=== PATIENT | female | born 1990 | race Caucasian/White ===

== ENCOUNTER 2017-01-08 11:37 | Emergency (ER) | payer OTHER ==
[~2017-01-08 11:37] MED LIST: ACET50TA PO; HYDR1SOL PO; IBUP80TA PO; VITAPRTA PO
[2017-01-08] MEDS ORDERED: NORCO, ANEXSIA 5/325MG TABLET (HYDROcodone/ACETAMINOPHEN) ONE (11:56)
--- NOTE | 2017-01-08 13:05 | EDDOCDS ---
Nurse's Notes [facility] Name: Carmen Choi Age: 26 yrs Sex: Female : 1990 Arrival Date: 01/08/2017 Time: 11:37 Bed PR Private MD: NO PRIMARY PHYSICIAN, . Diagnosis: Localized swelling, mass and lump, left upper limb-left middle finger PIP joint Presentation: 01/08 11:41 Presenting complaint: Patient states: woke up with L 3 rd finger swelling, pain and rs3 redness yesterday. reports of tingling/numbness in 3 rd finger. Adult Sepsis Screening: The patient does not have new or worsening altered mentation. Patient's respiratory rate is less than 22. Systolic blood pressure is greater than 100. Patient has a qSOFA score of 0- Negative Sepsis Screen. Suicide/Homicide risk assessment- the patient denies having any suicidal and/or homicidal ideations and does not present with any other emotional, behavioral or mental health complaints. Status: Patient is not a consumer services consultant or dependent. Transition of care: patient was not received from another setting of care. 11:41 Acuity: OLGA Level 4 rs3 11:41 Method Of Arrival: Walkin/Carried/Asstd rs3 Triage Assessment: 11:44 General: Appears in no apparent distress. Pain: Location: dorsal aspect of middle rs3 phalanx of left middle finger, dorsal aspect of proximal phalanx of left middle finger, palmar aspect of middle phalanx of left middle finger and palmar aspect of proximal phalanx of left middle finger. HIV screening NA for this visit Offered previously. 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 none - PMHx: none; - PSHx: Appendectomy; - Social history: Smoking status: Patient uses tobacco products, heavy tobacco smoker. No barriers to communication noted, The patient speaks fluent Cambodian. - Family history: Not pertinent. - : The pt / caregiver states he / she is not on anticoagulants. Home medication list is obtained from the patient. - Exposure Risk Screening:: None identified. Screenin:01 Screening information is obtained from the patient. Fall risk: No risks identified. pml Assistance ADL's: requires no assistance with activities of daily living. Abuse/DV Screen: The patient / caregiver reports he/she is: not in a situation that causes fear, pain or injury. Nutritional screening: No deficits noted. Advance Directives: Currently, there is no health care proxy. home support is adequate. Assessment: 11:56 General: Appears in no apparent distress, comfortable, Behavior is appropriate for age, pml cooperative. Pain: Location: palmar aspect of proximal phalanx of left middle finger Pain currently is 7 out of 10 on a pain scale. Neurological: Level of Consciousness is awake, alert, Oriented to person, place, time. Cardiovascular: Capillary refill < 3 seconds. Respiratory: Airway is patent Respiratory effort is even, unlabored. Derm: Skin is intact, Skin is red, Swollen area noted on palmar aspect of proximal phalanx of left middle finger and palmar aspect of middle phalanx of left middle finger and dorsal aspect of proximal phalanx of left middle finger and dorsal aspect of middle phalanx of left middle finger. 13:01 General: Appears in no apparent distress, Behavior is appropriate for age, cooperative. pml Neurological: Level of Consciousness is awake, alert, Oriented to person, place, time. Cardiovascular: Capillary refill < 3 seconds. Respiratory: Airway is patent Respiratory effort is even, unlabored. Derm: Skin is red, on palmar aspect of proximal phalanx of left middle finger and palmar aspect of middle phalanx of left middle finger Swollen area noted on palmar aspect of middle phalanx of left middle finger and dorsal aspect of proximal phalanx of left middle finger and dorsal aspect of middle phalanx of left middle finger. Vital Signs: 11:40 BP 103 / 67; Pulse 79; Resp 18; Temp 99.3(O); Pulse Ox 100% on R/A; Weight 64.41 kg bnb (M); Height 5 ft. 5 in. (165.10 cm) (R); Pain 7/10; 12:36 BP 129 / 78; Pulse 68; Resp 18; Temp 98.8(TE); Pulse Ox 99% on R/A; Pain 5/10; ar3 13:02 Pain 5/10; pml 11:40 Body Mass Index 23.63 (64.41 kg, 165.10 cm) bnb Vitals: 11:40 Log In Time: January 08, 2017 at 11:37. bnb ED Course: 11:39 Patient visited by Bridget Esposito PCA. bnb 11:39 Patient moved to Waiting bnb 11:40 NO PRIMARY PHYSICIAN, . is Private Physician. bnb 11:41 Alan Polk PA-C is PHCP. cc10 11:41 Angy Mcdonald MD is Attending Physician. cc10 11:41 Patient visited by Bridget Esposito PCA. bnb 11:41 Patient moved to Pre RCE bnb 11:43 Triage Initiated rs3 11:45 Patient moved to Triage 2 rs3 11:47 Patient visited by Alan Polk PA-C. cc10 11:47 Patient visited by Alan Polk PA-C. cc10 11:57 Patient visited by Veronika Merritt RN. pml 11:57 Patient moved to TR1 pml 12:13 [facility] Payment Agreement was scanned into [employer] and attached to record. mm15 12:33 Patient moved to PR1 / 25 ar3 12:36 Patient visited by Eloina Snyder PCA. ar3 12:55 [facility] is Referral Physician. cc10 13:01 The patient / caregiver is instructed regarding the plan of care and ED course. Patient pml has correct armband on for positive identification. Bed in low position. Call light in reach. 13:01 No IV's were initiated during this patient's visit. No procedures done that require pml assistance. Administered Medications: 11:56 Drug: HYDROcodone-acetaminophen 1 tabs [hydrocodone 5 mg-acetaminophen 325 mg tablet (1 pml tabs)] Route: PO; 13:02 Follow up: Pain 5/10 Adult; Response: Confirmed pt not driving.; Pain is decreased pml Order Results: There are currently no results for this order. Outcome: 12:55 Discharge ordered by Provider. cc10 13:01 Discharge Assessment: Patient awake, alert and oriented x 3. No cognitive and/or pml functional deficits noted. Patient verbalized understanding of disposition instructions. patient administered narcotics - no. The following High Risk Discharge criteria are identified: None. Discharged to home ambulatory. Condition: good Condition: stable. Discharge instructions given to patient, Instructed on discharge instructions, follow up and referral plans. medication usage, Demonstrated understanding of instructions, medications, Pt was receptive of discharge instructions/ teaching. No special radiology studies were completed. Property sent home with patient. 13:03 Patient left the ED. pml Signatures: Macie Erazo RN RN rs3 Eloina Snyder, METHODS SPECIALIST METHODS SPECIALIST ar3 Veronika Merritt RN RN pml Richar Alexander mm15 Alan Polk, PA-C PA-C cc10 Bridget Esposito, METHODS SPECIALIST METHODS SPECIALIST bnb MTDD
--- NOTE | 2017-01-08 13:05 | EDDOCDS ---
Physician Documentation [facility] Name: Carmen Choi Age: 26 yrs Sex: Female : 1990 Arrival Date: 01/08/2017 Time: 11:37 Bed PR Private MD: NO PRIMARY PHYSICIAN, . Disposition: 01/08/17 12:55 Discharged to Home/Self Care. Impression: Localized swelling, mass and lump, left upper limb - left middle finger PIP joint. - Condition is Stable. - Discharge Instructions: Pseudogout. - Prescriptions for Naprosyn 500 mg Oral Tablet - take 1 tablet by ORAL route 2 times per day take with food; 30 tablet. - Medication Reconciliation, [facility] Followup form. - Follow up: [facility]; When: Call to arrange an appointment; Reason: Wound/Symptom Recheck, Recheck today's complaints, Worsening of conditions, Continuance of care. - Problem is an ongoing problem. - Symptoms have improved. Historical: - Allergies: Darvocet-N 100 (Hives); Percocet (Hives); - Home Meds: 1. none - PMHx: none; - PSHx: Appendectomy; - Social history: Smoking status: Patient uses tobacco products, heavy tobacco smoker. No barriers to communication noted, The patient speaks fluent Swazi. - Family history: Not pertinent. - : The pt / caregiver states he / she is not on anticoagulants. Home medication list is obtained from the patient. - Exposure Risk Screening:: None identified. 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 5 in. (165.10 cm) (R); Pain 7/10; 12:36 BP 129 / 78; Pulse 68; Resp 18; Temp 98.8(TE); Pulse Ox 99% on R/A; Pain 5/10; ar3 13:02 Pain 5/10; pml 11:40 Body Mass Index 23.63 (64.41 kg, 165.10 cm) bnb MDM: 11:54 HYDROcodone-acetaminophen 5 mg-325 mg 1 tabs PO once ordered. cc10 11:55 Fingers: 3rd. Ordered. EDMS 12:13 Financial registration complete. mm15 12:13 [facility] Payment Agreement was scanned into [employer] and attached to record. mm15 12:54 Splint Affected Extremity ordered. cc10 Administered Medications: 11:56 Drug: HYDROcodone-acetaminophen 1 tabs [hydrocodone 5 mg-acetaminophen 325 mg tablet (1 pml tabs)] Route: PO; 13:02 Follow up: Pain 04/05 Adult; Response: Confirmed pt not driving.; Pain is decreased pml Signatures: Dispatcher [employer] EDMS Macie Erazo RN RN rs3 Veronika Merritt RN RN pml Richar Alexander mm15 Alan Polk PA-C PA-C cc10 The chart was reviewed and I authenticate all verbal orders and agree with the evaluation and treatment provided.Attachments: 12:13 [facility] Payment Agreement mm15 MTDD
--- NOTE | 2017-01-08 15:00 | REP ---
LEFT THIRD FINGER SERIES: 01/08/2017. Clinical history: Pain third digit, unable to fully extend finger. Four views show soft tissue swelling about the PIP joint of the third finger. Lesser swelling elsewhere in that digit. In the volar aspect of the third digit at the PIP joint shows a soft tissue calcification. This could be an avulsion or calcified loose body in the joint. It is not as dense as I would expect for an acute avulsion, it may be old. There were no other findings. Signed by Donny Husain MD 01/08/2017 07:29 P
--- NOTE | 2017-01-10 14:05 | EDDOCDS ---
Nurse's Notes [facility] Name: Carmen Choi Age: 26 yrs Sex: Female : 1990 Arrival Date: 01/08/2017 Time: 11:37 Bed PR Private MD: NO PRIMARY PHYSICIAN, . Diagnosis: Localized swelling, mass and lump, left upper limb-left middle finger PIP joint Presentation: 01/08 11:41 Presenting complaint: Patient states: woke up with L 3 rd finger swelling, pain and rs3 redness yesterday. reports of tingling/numbness in 3 rd finger. Adult Sepsis Screening: The patient does not have new or worsening altered mentation. Patient's respiratory rate is less than 22. Systolic blood pressure is greater than 100. Patient has a qSOFA score of 0- Negative Sepsis Screen. Suicide/Homicide risk assessment- the patient denies having any suicidal and/or homicidal ideations and does not present with any other emotional, behavioral or mental health complaints. Status: Patient is not a media services specialist or dependent. Transition of care: patient was not received from another setting of care. 11:41 Acuity: OLGA Level 4 rs3 11:41 Method Of Arrival: Walkin/Carried/Asstd rs3 Triage Assessment: 11:44 General: Appears in no apparent distress. Pain: Location: dorsal aspect of middle rs3 phalanx of left middle finger, dorsal aspect of proximal phalanx of left middle finger, palmar aspect of middle phalanx of left middle finger and palmar aspect of proximal phalanx of left middle finger. HIV screening NA for this visit Offered previously. 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 none - PMHx: none; - PSHx: Appendectomy; - Social history: Smoking status: Patient uses tobacco products, heavy tobacco smoker. No barriers to communication noted, The patient speaks fluent Bahraini. - Family history: Not pertinent. - : The pt / caregiver states he / she is not on anticoagulants. Home medication list is obtained from the patient. - Exposure Risk Screening:: None identified. Screenin:01 Screening information is obtained from the patient. Fall risk: No risks identified. pml Assistance ADL's: requires no assistance with activities of daily living. Abuse/DV Screen: The patient / caregiver reports he/she is: not in a situation that causes fear, pain or injury. Nutritional screening: No deficits noted. Advance Directives: Currently, there is no health care proxy. home support is adequate. Assessment: 11:56 General: Appears in no apparent distress, comfortable, Behavior is appropriate for age, pml cooperative. Pain: Location: palmar aspect of proximal phalanx of left middle finger Pain currently is 7 out of 10 on a pain scale. Neurological: Level of Consciousness is awake, alert, Oriented to person, place, time. Cardiovascular: Capillary refill < 3 seconds. Respiratory: Airway is patent Respiratory effort is even, unlabored. Derm: Skin is intact, Skin is red, Swollen area noted on palmar aspect of proximal phalanx of left middle finger and palmar aspect of middle phalanx of left middle finger and dorsal aspect of proximal phalanx of left middle finger and dorsal aspect of middle phalanx of left middle finger. 13:01 General: Appears in no apparent distress, Behavior is appropriate for age, cooperative. pml Neurological: Level of Consciousness is awake, alert, Oriented to person, place, time. Cardiovascular: Capillary refill < 3 seconds. Respiratory: Airway is patent Respiratory effort is even, unlabored. Derm: Skin is red, on palmar aspect of proximal phalanx of left middle finger and palmar aspect of middle phalanx of left middle finger Swollen area noted on palmar aspect of middle phalanx of left middle finger and dorsal aspect of proximal phalanx of left middle finger and dorsal aspect of middle phalanx of left middle finger. Vital Signs: 11:40 BP 103 / 67; Pulse 79; Resp 18; Temp 99.3(O); Pulse Ox 100% on R/A; Weight 64.41 kg bnb (M); Height 5 ft. 5 in. (165.10 cm) (R); Pain 7/10; 12:36 BP 129 / 78; Pulse 68; Resp 18; Temp 98.8(TE); Pulse Ox 99% on R/A; Pain 5/10; ar3 13:02 Pain 5/10; pml 11:40 Body Mass Index 23.63 (64.41 kg, 165.10 cm) bnb Vitals: 11:40 Log In Time: January 08, 2017 at 11:37. bnb ED Course: 11:39 Patient visited by Bridget Esposito PCA. bnb 11:39 Patient moved to Waiting bnb 11:40 NO PRIMARY PHYSICIAN, . is Private Physician. bnb 11:41 Alan Polk PA-C is PHCP. cc10 11:41 Angy Mcdonald MD is Attending Physician. cc10 11:41 Patient visited by rBidget Esposito PCA. bnb 11:41 Patient moved to Pre RCE bnb 11:43 Triage Initiated rs3 11:45 Patient moved to Triage 2 rs3 11:47 Patient visited by Alan Polk PA-C. cc10 11:47 Patient visited by Alan Polk PA-C. cc10 11:57 Patient visited by Veronika Merritt RN. pml 11:57 Patient moved to TR1 pml 12:13 [facility] Payment Agreement was scanned into [employer] and attached to record. mm15 12:33 Patient moved to PR1 / 25 ar3 12:36 Patient visited by Eloina Snyder PCA. ar3 12:55 [facility] is Referral Physician. cc10 13:01 The patient / caregiver is instructed regarding the plan of care and ED course. Patient pml has correct armband on for positive identification. Bed in low position. Call light in reach. 13:01 No IV's were initiated during this patient's visit. No procedures done that require pml assistance. 15:08 Fingers: 3rd. Returned. EDMS 01/09 13:26 T-Sheet-- Draft Copy was scanned into [employer] and attached to record. gb Administered Medications: 01/08 11:56 Drug: HYDROcodone-acetaminophen 1 tabs [hydrocodone 5 mg-acetaminophen 325 mg tablet (1 pml tabs)] Route: PO; 13:02 Follow up: Pain 5/10 Adult; Response: Confirmed pt not driving.; Pain is decreased pml Order Results: Radiology Order: Fingers: 3rd. Test: Fingers: 3rd. REASON FOR EXAMINATION: Deformity/Swelling; LEFT THIRD FINGER SERIES: 01/08/2017.; ; Clinical history: Pain third digit, unable to fully extend finger.; ; Four views show soft tissue swelling about the PIP joint of the third finger.; Lesser swelling elsewhere in that digit. In the volar aspect of the third digit; at the PIP joint shows a soft tissue calcification. This could be an avulsion or; calcified loose body in the joint. It is not as dense as I would expect for an; acute avulsion, it may be old. There were no other findings.; ; ; ; ; Signed by; Donny Husain MD 01/08/2017 07:29 P; Outcome: 12:55 Discharge ordered by Provider. cc10 13:01 Discharge Assessment: Patient awake, alert and oriented x 3. No cognitive and/or pml functional deficits noted. Patient verbalized understanding of disposition instructions. patient administered narcotics - no. The following High Risk Discharge criteria are identified: None. Discharged to home ambulatory. Condition: good Condition: stable. Discharge instructions given to patient, Instructed on discharge instructions, follow up and referral plans. medication usage, Demonstrated understanding of instructions, medications, Pt was receptive of discharge instructions/ teaching. No special radiology studies were completed. Property sent home with patient. 13:03 Patient left the ED. pml Signatures: Dispatcher [employer] EDMS Precious Cabezas, Reg Reg gb Macie ErazoRN RN rs3 Eloina Snyder, STONE CRUSHER OPERATOR STONE CRUSHER OPERATOR ar3 Veronika Merritt RN RN pml Richar Alexander mm15 Alan Polk, PA-C PA-C cc10 Bridget Esposito, STONE CRUSHER OPERATOR STONE CRUSHER OPERATOR bnb Chart Complete MTDD
--- NOTE | 2017-01-10 14:05 | EDDOCDS ---
Physician Documentation [facility] Name: Carmen Choi Age: 26 yrs Sex: Female : 1990 Arrival Date: 01/08/2017 Time: 11:37 Bed PR Private MD: NO PRIMARY PHYSICIAN, . Disposition: 01/08/17 12:55 Discharged to Home/Self Care. Impression: Localized swelling, mass and lump, left upper limb - left middle finger PIP joint. - Condition is Stable. - Discharge Instructions: Pseudogout. - Prescriptions for Naprosyn 500 mg Oral Tablet - take 1 tablet by ORAL route 2 times per day take with food; 30 tablet. - Medication Reconciliation, [facility] Followup form. - Follow up: [facility]; When: Call to arrange an appointment; Reason: Wound/Symptom Recheck, Recheck today's complaints, Worsening of conditions, Continuance of care. - Problem is an ongoing problem. - Symptoms have improved. Historical: - Allergies: Darvocet-N 100 (Hives); Percocet (Hives); - Home Meds: 1. none - PMHx: none; - PSHx: Appendectomy; - Social history: Smoking status: Patient uses tobacco products, heavy tobacco smoker. No barriers to communication noted, The patient speaks fluent Colombian. - Family history: Not pertinent. - : The pt / caregiver states he / she is not on anticoagulants. Home medication list is obtained from the patient. - Exposure Risk Screening:: None identified. 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 5 in. (165.10 cm) (R); Pain 7/10; 12:36 BP 129 / 78; Pulse 68; Resp 18; Temp 98.8(TE); Pulse Ox 99% on R/A; Pain 5/10; ar3 13:02 Pain 5/10; pml 11:40 Body Mass Index 23.63 (64.41 kg, 165.10 cm) bnb MDM: 11:54 HYDROcodone-acetaminophen 5 mg-325 mg 1 tabs PO once ordered. cc10 11:55 Fingers: 3rd. Ordered. EDMS 12:13 Financial registration complete. mm15 12:13 [facility] Payment Agreement was scanned into [employer] and attached to record. mm15 12:54 Splint Affected Extremity ordered. cc10 01/09 13:26 T-Sheet-- Draft Copy was scanned into [employer] and attached to record. gb Administered Medications: 01/08 11:56 Drug: HYDROcodone-acetaminophen 1 tabs [hydrocodone 5 mg-acetaminophen 325 mg tablet (1 pml tabs)] Route: PO; 13:02 Follow up: Pain 04/05 Adult; Response: Confirmed pt not driving.; Pain is decreased pml Signatures: Dispatcher [employer] EDMS Precious Cabezas, Reg Reg gb Macie Erazo RN RN rs3 Veronika Merritt RN RN pml Richar Alexander mm15 Alan Polk PA-C PARyan cc10 The chart was reviewed and I authenticate all verbal orders and agree with the evaluation and treatment provided.Attachments: 12:13 [facility] Payment Agreement mm15 01/09 13:26 T-Sheet-- Draft Copy gb Chart Complete MTDD
--- NOTE | 2017-01-10 14:06 | EDDOCDS ---
Physician Documentation [facility] Name: Carmen Choi Age: 26 yrs Sex: Female : 1990 Arrival Date: 01/08/2017 Time: 11:37 Bed PR Private MD: NO PRIMARY PHYSICIAN, . Disposition: 01/08/17 12:55 Discharged to Home/Self Care. Impression: Localized swelling, mass and lump, left upper limb - left middle finger PIP joint. - Condition is Stable. - Discharge Instructions: Pseudogout. - Prescriptions for Naprosyn 500 mg Oral Tablet - take 1 tablet by ORAL route 2 times per day take with food; 30 tablet. - Medication Reconciliation, [facility] Followup form. - Follow up: [facility]; When: Call to arrange an appointment; Reason: Wound/Symptom Recheck, Recheck today's complaints, Worsening of conditions, Continuance of care. - Problem is an ongoing problem. - Symptoms have improved. Historical: - Allergies: Darvocet-N 100 (Hives); Percocet (Hives); - Home Meds: 1. none - PMHx: none; - PSHx: Appendectomy; - Social history: Smoking status: Patient uses tobacco products, heavy tobacco smoker. No barriers to communication noted, The patient speaks fluent Greek. - Family history: Not pertinent. - : The pt / caregiver states he / she is not on anticoagulants. Home medication list is obtained from the patient. - Exposure Risk Screening:: None identified. 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 5 in. (165.10 cm) (R); Pain 7/10; 12:36 BP 129 / 78; Pulse 68; Resp 18; Temp 98.8(TE); Pulse Ox 99% on R/A; Pain 5/10; ar3 13:02 Pain 5/10; pml 11:40 Body Mass Index 23.63 (64.41 kg, 165.10 cm) bnb MDM: 11:54 HYDROcodone-acetaminophen 5 mg-325 mg 1 tabs PO once ordered. cc10 11:55 Fingers: 3rd. Ordered. EDMS 12:13 Financial registration complete. mm15 12:13 [facility] Payment Agreement was scanned into [employer] and attached to record. mm15 12:54 Splint Affected Extremity ordered. cc10 01/09 13:26 T-Sheet-- Draft Copy was scanned into [employer] and attached to record. gb Administered Medications: 01/08 11:56 Drug: HYDROcodone-acetaminophen 1 tabs [hydrocodone 5 mg-acetaminophen 325 mg tablet (1 pml tabs)] Route: PO; 13:02 Follow up: Pain 04/05 Adult; Response: Confirmed pt not driving.; Pain is decreased pml Signatures: Dispatcher [employer] EDMS Precious Cabezas, Reg Reg gb Macie Erazo RN RN rs3 Veronika Merritt RN RN pml Richar Alexander mm15 Alan oPlk PA-C PARyan cc10 The chart was reviewed and I authenticate all verbal orders and agree with the evaluation and treatment provided.Attachments: 12:13 [facility] Payment Agreement mm15 01/09 13:26 T-Sheet-- Draft Copy gb Chart Complete MTDD
== END 2017-01-08 13:03 | disposition home or self-care (01) ==
LOC: M ED 11:37
DX: M79.645 Pain in left finger(s) (principal); Z72.0 Tobacco use; Z88.5 Allergy status to narcotic agent

== ENCOUNTER 2017-07-04 01:44 | Emergency (ER) | payer OTHER, SELFPAY ==
[2017-07-04 01:52] VITALS: BP 104/65
== END 2017-07-04 06:24 | disposition left against medical advice (07) ==
LOC: M ED 01:44
DX: K04.7 Periapical abscess without sinus (principal); Z53.21 Procedure and treatment not carried out due to patient leaving prior to being seen by health care provider

== ENCOUNTER 2017-08-15 14:49 | Emergency (ER) | payer OTHER ==
[~2017-08-15] VITALS: Ht 165.1 cm; Wt 58.2 kg
[2017-08-15] MEDS ORDERED: SUDA30TA PO (17:38)
[2017-08-15] MEDS ORDERED: FLON1SPR (17:38)
[2017-08-15] MEDS ORDERED: ZYRT10TA2 PO (17:38)
[2017-08-15 18:01] VITALS: BP 109/62
== END 2017-08-15 18:17 | disposition home or self-care (01) ==
LOC: M ED 14:49
DX: J30.9 Allergic rhinitis, unspecified (principal); H66.93 Otitis media, unspecified, bilateral; F17.200 Nicotine dependence, unspecified, uncomplicated; Z79.899 Other long term (current) drug therapy; Z88.5 Allergy status to narcotic agent

== ENCOUNTER 2017-08-18 13:20 | Emergency (ER) | payer OTHER ==
[~2017-08-18] VITALS: Ht 165.1 cm; Wt 58.2 kg
[~2017-08-18 13:20] MED LIST changes: +FLON1SPR; +SUDA30TA PO; +ZYRT10TA2 PO
[2017-08-18 13:21] VITALS: BP 139/91
--- NOTE | 2017-08-18 16:03 | REP ---
Left rib series and PA chest: Left ribs four views: There is no rib fracture or other rib abnormality. PA chest: There is no pneumothorax, hemothorax or pulmonary contusion. There is mild thoracic scoliosis convex right at the thoracolumbar junction, possibly positional. There is body piercing jewelry in the right breast. Signed by Ajit Molina MD 08/18/2017 03:54 P
[2017-08-18] MEDS ORDERED: CYCL10TA PO (16:46)
== END 2017-08-18 17:07 | disposition home or self-care (01) ==
LOC: M ED 13:20
DX: S20.229A Contusion of unspecified back wall of thorax, initial encounter (principal); R07.81 Pleurodynia; W22.8XXA Striking against or struck by other objects, initial encounter; Y92.099 Unspecified place in other non-institutional residence as the place of occurrence of the external cause; Y93.89 Activity, other specified; Y99.9 Unspecified external cause status; J30.9 Allergic rhinitis, unspecified; F17.200 Nicotine dependence, unspecified, uncomplicated; M41.80 Other forms of scoliosis, site unspecified; Z79.899 Other long term (current) drug therapy; Z88.5 Allergy status to narcotic agent

== ENCOUNTER → 2017-08-25 | Outpatient (CLI) | payer OTHER ==
[~2017-08-25] MED LIST changes: +CYCL10TA PO
--- NOTE | 2017-08-25 14:16 | REP ---
PELVIC ULTRASOUND: Real-time sonographic evaluation of the pelvis performed utilizing transabdominal and endovaginal technique. The bladder measures 5.4 x .1 x 8.6 cm. The uterus measures 7.6 x 3.8 x 3.9 cm. Endometrial thickness is 10 mm. Right ovary measures 3.4 x 2.6 x 2.5 cm and contains a complex follicle 1.5 x 1.1 x 1.3 cm. The ovary measures 3.2 x 2.4 x 4.0 cm and contains a complex follicle 1.9 x 1.6 x 2.0 cm. There is no evidence of ovarian torsion with blood flow seen in each ovary with duplex Doppler evaluation, RI right ovary 0.33 and left ovary 0.34. There is trace free fluid in the cul-de-sac. IMPRESSION: Complex follicle in each ovary. Trace free fluid. No torsion. Signed by Ajit Remy MD 08/25/2017 05:19 P
== END ==
LOC: M RAD 13:02
PROVIDERS: ATTEND Physician Assistant Medical
DX: R10.9 Unspecified abdominal pain (principal)

== ENCOUNTER → 2017-11-13 | Outpatient (REF) | payer OTHER ==
[2017-11-13 18:40] LABS: MEAN CORPUSCULAR HGB CONC 32.7 g/dl (32.0-36.5); MEAN CORPUSCULAR VOLUME 91.7 fl (80.0-96.0); PLATELET COUNT, AUTOMATED 160 10^3/uL (150-450); RED CELL DISTRIBUTION WIDTH 13.2 % (11.5-14.5); WHITE BLOOD COUNT 11.4 10^3/uL (4.0-10.0)
[2017-11-13 19:13] LABS: HCG, SERUM QUANTITATIVE 5530 MIU/ML
[2017-11-15 12:07] LABS: HBsAg Prenatal NEGATIVE (NEGATIVE)
== END ==
LOC: M LAB REF 16:42
PROVIDERS: ATTEND Advanced Practice Midwife
DX: O36.80X0 Pregnancy with inconclusive fetal viability, not applicable or unspecified (principal)

== ENCOUNTER 2017-11-21 16:07 | Emergency (ER) | payer OTHER ==
[2017-11-21] MEDS: NS 1,000 ML IV (19:15)
[2017-11-21 20:31] LABS: BASO % 0.2 % (0.0-1.0); EOS # 0.1 10^3/uL (0.0-0.50); EOS % 0.6 % (0.0-3.0); IMMATURE GRANULOCYTE % 0.2 % (0-0); LYMPH # 2.8 10^3/uL (1.5-6.5); LYMPH % 33.1 % (24.0-44.0); MEAN CORPUSCULAR HGB CONC 33.7 g/dl (32.0-36.5); MEAN CORPUSCULAR VOLUME 89.1 fl (80.0-96.0); MONO # 0.5 10^3/uL (0.0-0.8); MONO % 6.1 % (0.0-5.0); NEUTROPHILS % 59.8 % (36.0-66.0); PLATELET COUNT, AUTOMATED 155 10^3/uL (150-450); RED CELL DISTRIBUTION WIDTH 12.9 % (11.5-14.5); WHITE BLOOD COUNT 8.3 10^3/uL (4.0-10.0)
[2017-11-21 21:10] LABS: HCG, SERUM QUANTITATIVE 24104 MIU/ML
== END 2017-11-21 21:59 | disposition home or self-care (01) ==
LOC: M ED 16:07
DX: O20.8 Other hemorrhage in early pregnancy (principal); O23.41 Unspecified infection of urinary tract in pregnancy, first trimester; Z3A.08 8 weeks gestation of pregnancy; O99.331 Smoking (tobacco) complicating pregnancy, first trimester; Z79.899 Other long term (current) drug therapy; Z88.5 Allergy status to narcotic agent
CPT/HCPCS: 76801

== ENCOUNTER → 2018-02-22 | Outpatient (REF) | payer MEDICAID | LOC: M LAB REF 13:35 | DX: Z34.82 Encounter for supervision of other normal pregnancy, second trimester (principal) ==

== ENCOUNTER → 2018-05-01 | Outpatient (CLI) | payer OTHER ==
[2018-05-01 13:42] LABS: HEMATOCRIT 35.2 % (36.0-47.0); HEMOGLOBIN 11.8 g/dl (12.0-15.5); MEAN CORPUSCULAR HEMOGLOBIN 30.7 pg (27.0-33.0); MEAN CORPUSCULAR HGB CONC 33.5 g/dl (32.0-36.5); MEAN CORPUSCULAR VOLUME 91.7 fl (80.0-96.0); PLATELET COUNT, AUTOMATED 121 10^3/uL (150-450); RED BLOOD COUNT 3.84 10^6/uL (4.00-5.40); RED CELL DISTRIBUTION WIDTH 14.3 % (11.5-14.5); WHITE BLOOD COUNT 13.3 10^3/uL (4.0-10.0)
[2018-05-01 14:08] LABS: GLUCOSE CHALLENGE TEST 1 HOUR 104 MG/DL (LESS THAN 140)
== END ==
LOC: M LAB 12:01
DX: Z34.82 Encounter for supervision of other normal pregnancy, second trimester (principal); Z36.89 Encounter for other specified antenatal screening
CPT/HCPCS: 82950

== ENCOUNTER 2018-05-11 19:30 | Outpatient (CLI) | payer OTHER ==
[2018-05-11 22:43] LABS: CHLAMYDIA DNA AMPLIFICATION NEGATIVE (NEGATIVE); GC DNA AMPLIFICATION NEGATIVE (NEGATIVE)
== END 2018-05-11 21:13 | disposition home or self-care (01) ==
LOC: M LDO 19:30
DX: O26.853 Spotting complicating pregnancy, third trimester (principal); Z3A.31 31 weeks gestation of pregnancy
CPT/HCPCS: 76815

== ENCOUNTER → 2018-06-19 | Outpatient (REF) | payer OTHER | LOC: M LAB REF 13:04 | DX: Z34.83 Encounter for supervision of other normal pregnancy, third trimester (principal); Z3A.00 Weeks of gestation of pregnancy not specified | CPT/HCPCS: 87081 ==

== ENCOUNTER 2018-07-04 06:28 | Inpatient (IN) | payer OTHER ==
[2018-07-04] MEDS ORDERED: OXYTOCIN 30 UNITS IN 0.9% NaCl 500ML IV BAG (J2590) As Ordered (07:11)
[2018-07-04] MEDS: LACTATED RINGER'S 1000 ML IV (07:30)
[2018-07-04] MEDS: OXYTOCIN DRIP 30 UNITS in APPROPRIATE DILUENT 1 EA IV (07:30)
[2018-07-04] MEDS ORDERED: RHOGAM 300 MCG (1500 IU) INJ (J2790) IM (07:45)
[2018-07-04] MEDS ORDERED: DOCUSATE SODIUM 100 MG CAP PO (07:45)
[2018-07-04] MEDS ORDERED: MEASLES,MUMPS,RUBELLA VACCINE INJ (MMR-II) (90707) SC (07:45)
[2018-07-04] MEDS ORDERED: DIBUCAINE 1% OINTMENT 30GM TOP (07:45)
[2018-07-04] MEDS ORDERED: METHYLERGONOVINE MALEATE 0.2 MG TAB PO (07:45)
[2018-07-04 08:05] LABS: HEMATOCRIT 38.2 % (36.0-47.0); HEMOGLOBIN 12.6 g/dl (12.0-15.5); MEAN CORPUSCULAR HEMOGLOBIN 29.7 pg (27.0-33.0); MEAN CORPUSCULAR VOLUME 90.1 fl (80.0-96.0); PLATELET COUNT, AUTOMATED 165 10^3/uL (150-450); RED BLOOD COUNT 4.24 10^6/uL (4.00-5.40); RED CELL DISTRIBUTION WIDTH 13.5 % (11.5-14.5); WHITE BLOOD COUNT 27.4 10^3/uL (4.0-10.0)
[2018-07-04] MEDS: IBUPROFEN 800 MG TAB PO ×2 (09:27→21:16)
[2018-07-04] MEDS: PRENATAL VITAMINS CHEWABLE TABLET PO (09:56)
[2018-07-04] MEDS: ACETAMINOPHEN 500 MG TAB PO (12:47)
[2018-07-05] MEDS: ACETAMINOPHEN 500 MG TAB PO (08:55)
[2018-07-05] MEDS: PRENATAL VITAMINS CHEWABLE TABLET PO (08:55)
== END 2018-07-05 09:45 | disposition home or self-care (01) | DRG 541 ==
LOC: M LDO 06:28 → M LDI 07:04 → M OBS 09:47
PROVIDERS: Obstetrics & Gynecology
PROC: 10E0XZZ Delivery of Products of Conception, External Approach (ICD-10-PCS; principal; 2018-07-04)
PROC: 10D17Z9 Manual Extraction of Products of Conception, Retained, Via Natural or Artificial Opening (ICD-10-PCS; 2018-07-04)
DX: O73.0 Retained placenta without hemorrhage (principal); O69.82X0 Labor and delivery complicated by other cord entanglement, without compression, not applicable or unspecified; Z37.0 Single live birth; Z3A.39 39 weeks gestation of pregnancy

== ENCOUNTER 2018-11-19 16:24 | Emergency (ER) | payer OTHER ==
[~2018-11-19] VITALS: Ht 165.1 cm; Wt 56.8 kg
[2018-11-19 16:24] VITALS: BP 110/63
[~2018-11-19 16:24] MED LIST changes: -ACET50TA PO; +IBUP-1114 PO; +KEFL500C17 PO; +MAPA500T17 PO; +PRENTAB31 PO; +ZYRT10CA5 PO; -ZYRT10TA2 PO
[2018-11-19] MEDS ORDERED: NORCOTAB PO (16:47)
[2018-11-19] MEDS ORDERED: PERI0.126 PO (16:47)
[2018-11-19] MEDS ORDERED: AMOX500C PO (16:47)
== END 2018-11-19 16:58 | disposition home or self-care (01) ==
LOC: M ED 16:24
DX: K02.9 Dental caries, unspecified (principal)

== ENCOUNTER → 2018-12-13 | Outpatient (REF) | payer OTHER ==
[~2018-12-13] MED LIST changes: +AMOX500C PO; -MAPA500T17 PO; +MAPA500T2 PO; +NORCOTAB PO; +PERI0.126 PO
[2018-12-13 19:14] LABS: HCG, SERUM QUANTITATIVE 9 MIU/ML
[2018-12-13 19:18] LABS: HEMATOCRIT 45.9 % (36.0-47.0); HEMOGLOBIN 14.9 g/dl (12.0-15.5); MEAN CORPUSCULAR HEMOGLOBIN 28.3 pg (27.0-33.0); MEAN CORPUSCULAR HGB CONC 32.5 g/dl (32.0-36.5); MEAN CORPUSCULAR VOLUME 87.3 fl (80.0-96.0); PLATELET COUNT, AUTOMATED 157 10^3/uL (150-450); RED BLOOD COUNT 5.26 10^6/uL (4.00-5.40); WHITE BLOOD COUNT 7.1 10^3/uL (4.0-10.0)
[2018-12-14 10:16] LABS: RUBELLA IgG QUALITATIVE IMMUNE (IMMUNE)
[2018-12-14 10:44] LABS: HEPATITIS C VIRUS ABY INDEX 0.1 INDEX (<0.8)
[2018-12-14 11:50] LABS: HIV 1&2 SCREEN CENTAUR NEGATIVE (NEGATIVE)
== END ==
LOC: M LAB REF 16:50
PROVIDERS: ATTEND Obstetrics & Gynecology
DX: Z32.01 Encounter for pregnancy test, result positive (principal); O36.80X0 Pregnancy with inconclusive fetal viability, not applicable or unspecified

== ENCOUNTER → 2018-12-19 | Outpatient (REF) | payer OTHER | LOC: M LAB REF 17:12 | PROVIDERS: ATTEND Obstetrics & Gynecology | DX: O36.80X0 Pregnancy with inconclusive fetal viability, not applicable or unspecified (principal) ==

== ENCOUNTER 2019-04-13 14:57 | Emergency (ER) | payer OTHER ==
[~2019-04-13] VITALS: Ht 165.1 cm; Wt 61.4 kg
[~2019-04-13 14:57] MED LIST changes: +HYDR-3715 PO; -NORCOTAB PO
[2019-04-13 14:58] VITALS: BP 122/86
[2019-04-13] MEDS ORDERED: ERYTHROMYCIN OPHTH OINT OD ONE (15:30)
== END 2019-04-13 15:53 | disposition home or self-care (01) ==
LOC: M ED 14:57
DX: S05.01XA Injury of conjunctiva and corneal abrasion without foreign body, right eye, initial encounter (principal); W50.0XXA Accidental hit or strike by another person, initial encounter; Y92.098 Other place in other non-institutional residence as the place of occurrence of the external cause; F17.200 Nicotine dependence, unspecified, uncomplicated; Z88.8 Allergy status to other drugs, medicaments and biological substances

== ENCOUNTER 2020-01-08 15:09 | Emergency (ER) | payer MEDICAID, OTHER ==
[~2020-01-08] VITALS: Ht 165.1 cm; Wt 70.6 kg
[2020-01-08 15:10] VITALS: BP 117/70
[2020-01-08 16:59] LABS: HEMATOCRIT 43.4 % (36.0-47.0); HEMOGLOBIN 14.1 g/dl (12.0-15.5); MEAN CORPUSCULAR HEMOGLOBIN 30.4 pg (27.0-33.0); MEAN CORPUSCULAR HGB CONC 32.5 g/dl (32.0-36.5); MEAN CORPUSCULAR VOLUME 93.5 fl (80.0-96.0); PLATELET COUNT, AUTOMATED 149 10^3/uL (150-450); RED BLOOD COUNT 4.64 10^6/uL (4.00-5.40); WHITE BLOOD COUNT 8.9 10^3/uL (4.0-10.0)
[2020-01-08 17:16] LABS: BLOOD UREA NITROGEN 7 MG/DL (7-18); CALCIUM LEVEL 8.2 MG/DL (8.5-10.1); CARBON DIOXIDE LEVEL 27 MEQ/L (21-32); CHLORIDE LEVEL 108 MEQ/L (98-107); CREATININE FOR GFR 0.83 MG/DL (0.55-1.30); GLOMERULAR FILTRATION RATE > 60.0 (>60); GLUCOSE, FASTING 65 MG/DL (70-100); POTASSIUM SERUM 3.6 MEQ/L (3.5-5.1); SODIUM LEVEL 142 MEQ/L (136-145)
[2020-01-08 17:19] LABS: APPEARANCE, URINE CLEAR (CLEAR); BACTERIA, URINE AUTO NEGATIVE (NEGATIVE); BILIRUBIN, URINE AUTO NEGATIVE (NEGATIVE); BLOOD, URINE BLOOD NEGATIVE (NEGATIVE); COLOR, URINE YELLOW (YELLOW); GLUCOSE, URINE (UA) AUTO NEGATIVE (NEGATIVE); HCG, SERUM QUALITATIVE POSITIVE (NEGATIVE); KETONE, URINE AUTO TRACE mg/dL (NEGATIVE); LEUKOCYTE ESTERASE, URINE AUTO 2+ (NEGATIVE); MUCUS, URINE SMALL (NEGATIVE); NITRITE, URINE AUTO NEGATIVE (NEGATIVE); PROTEIN, URINE AUTO NEGATIVE (NEGATIVE); RBC, URINE AUTO 4 /HPF (0-3); SPECIFIC GRAVITY URINE AUTO 1.025 (1.002-1.035); SQUAMOUS EPITHELIAL CELL UR AU 2 /HPF (0-6); WBC, URINE AUTO 3 /HPF (0-3)
== END 2020-01-08 16:53 | disposition left against medical advice (07) ==
LOC: M ED 15:09
DX: Z53.21 Procedure and treatment not carried out due to patient leaving prior to being seen by health care provider (principal)

== ENCOUNTER → 2020-01-17 | Outpatient (REF) | payer MEDICAID ==
[2020-01-17 14:54] LABS: HEMATOCRIT 46.6 % (36.0-47.0); HEMOGLOBIN 15.2 g/dl (12.0-15.5); MEAN CORPUSCULAR HEMOGLOBIN 30.6 pg (27.0-33.0); MEAN CORPUSCULAR HGB CONC 32.6 g/dl (32.0-36.5); PLATELET COUNT, AUTOMATED 156 10^3/uL (150-450); RED BLOOD COUNT 4.96 10^6/uL (4.00-5.40); WHITE BLOOD COUNT 8.8 10^3/uL (4.0-10.0)
[2020-01-17 15:13] LABS: HCG, SERUM QUANTITATIVE 20493 MIU/ML
[2020-01-17 15:17] LABS: RUBELLA IgG QUALITATIVE IMMUNE (IMMUNE)
[2020-01-17 15:46] LABS: HIV 1&2 SCREEN CENTAUR NEGATIVE (NEGATIVE)
[2020-01-20 10:43] LABS: HEPATITIS C VIRUS ABY INDEX < 0.0 INDEX (<0.8)
== END ==
LOC: M LAB REF 13:08
PROVIDERS: ATTEND Obstetrics & Gynecology
DX: Z32.01 Encounter for pregnancy test, result positive (principal)

== ENCOUNTER → 2020-01-20 | Outpatient (CLI) | payer MEDICAID ==
--- NOTE | 2020-01-20 17:47 | REP ---
First trimester obstetric sonography: History: Supervision of . viability. Findings: Transabdominal scanning is performed. A single living intrauterine gestation is confirmed. Embryonic pole measures 5 mm in crown-rump length. This corresponds to a 4-pvmm-2-day gestational age estimate. heart rate is recorded at 123 beats per minute. No subchorionic hemorrhage is seen. No extrauterine abnormality is observed. Impression: Viable single intrauterine gestation at 6 weeks 2 days by crown-rump length. FARZANA by sonography September 12, 2020. No complication is identified. Electronically Signed by Simone Alanis MD 01/20/2020 06:21 P
== END ==
LOC: M RAD 15:32
PROVIDERS: ATTEND Obstetrics & Gynecology
DX: O36.80X0 Pregnancy with inconclusive fetal viability, not applicable or unspecified (principal); Z3A.01 Less than 8 weeks gestation of pregnancy

== ENCOUNTER → 2020-04-22 | Outpatient (CLI) | payer OTHER ==
[~2020-04-22] MED LIST changes: +CYCL-707 PO; -CYCL10TA PO
--- NOTE | 2020-04-23 03:24 | REP ---
Clinical: Anatomical evaluation. Comparison: 01/20/2020 . Findings: Examination demonstrates a single live intrauterine in transverse (head to maternal left) presentation. motion is identified by technologist. Placenta is noted posterior and grade there zero without evidence for placenta previa or abruption. Amniotic fluid volume is normal. Cervix measures 3.8 cm in length and appears closed. No evidence for nuchal cord. Gestational age by LMP 20 weeks 3 days with FARZANA 09/06/2020 . Gestational age by current measurements 20 weeks 0 days with FARZANA 09/09/2020 . FHR equals 160 beats per minute. BPD 4.6 cm 20 weeks 0 days HC 17.3 cm 19 weeks 6 days AC 14.6 cm 19 weeks 6 days FL 3.2 cm 19 weeks 6 days HL 3.1 cm 20 weeks 1 day HC/AC ratio 1.18 Estimated weight 318 grams ( 29th percentile). Anatomical assessment demonstrates normal structures including cranium, choroid plexus, cavum, cerebellum/posterior fossa, facial features, lungs, diaphragm, stomach, cord insertion/three-vessel cord, kidneys/bladder, spine, and extremities. Impression: Single live intrauterine in transverse lie demonstrating appropriate estimated weight and growth. Limited evaluation of the heart/ventricular outflow tracts noted. Remainder of the anatomical assessment is complete and normal. Electronically Signed by Romario Maya MD 04/23/2020 03:16 A
== END ==
LOC: M RAD 14:28
PROVIDERS: ATTEND Obstetrics & Gynecology
DX: Z34.82 Encounter for supervision of other normal pregnancy, second trimester (principal); Z3A.20 20 weeks gestation of pregnancy

== ENCOUNTER → 2020-05-20 | Outpatient (CLI) | payer OTHER ==
--- NOTE | 2020-05-20 16:11 | REP ---
OBSTETRIC SONOGRAPHY: HISTORY: Supervision of followup anatomy. heart. FINDINGS: Scanning through the gravid uterus demonstrates a single living intrauterine gestation in a variable lie. motion is observed and heart rate is recorded at 157 beats per minute. A posterior fundal grade 0 placenta is seen without evidence of previa or abruption. Amniotic fluid is subjectively normal. Closed cervical length is measured transabdominally at 4.6 cm. No extrauterine abnormality is observed. There has been appropriate interval growth. Four-chamber heart visualization is still less than optimal as is right ventricular cardiac outflow tract view. Left ventricular outflow tract view is achieved and is felt to be unremarkable. The following additional anatomic structures are identified and felt to be unremarkable: cranium, choroid plexus, cavum, cerebellum and posterior fossa, lungs, left jugular outflow tract view, diaphragm, left-sided stomach, abdominal wall cord insertion, three-vessel cord, kidneys and bladder, spine, upper and lower extremities. BIOMETRY CHART: BPD 6.0 cm = 24 weeks 4 days HC 21.5 cm = 23 weeks 4 days AC 18.8 cm = 23 weeks 4 days FL 4.4 cm = 24 weeks 4 days HL 4.0 cm = 24 weeks 3 days CD 2.5 cm = 22 weeks 6 days HC/AC ratio normal 1.14 Cephalic index normal 0.79. Estimated weight 653 grams, 1 pound 7 ounces, 34th percentile for 24 weeks 3 days. IMPRESSION: A single intrauterine gestation at 23 weeks 6 days by today's composite criteria. Expected gestational age estimate based on prior sonography is 24 weeks 3 days. FARZANA by prior sonography September 06, 2020. Appropriate interval growth. cardiac structures are still less than optimally visualized due to position. Electronically Signed by Simone Alanis MD 05/20/2020 04:46 P
== END ==
LOC: M LRY 12:12
PROVIDERS: ATTEND Advanced Practice Midwife
DX: Z36.2 Encounter for other antenatal screening follow-up (principal); Z3A.23 23 weeks gestation of pregnancy

== ENCOUNTER → 2020-06-02 | Outpatient (CLI) | payer OTHER ==
[~2020-06-02] MED LIST changes: +PRENTAB9 PO; +TUMS500C PO
--- NOTE | 2020-06-02 15:07 | REP ---
Bilateral lower extremity Duplex Doppler venous ultrasound: Real time compression and duplex Doppler interrogation of the bilateral lower extremity deep venous system is performed. Bilaterally, the common femoral, superficial femoral and popliteal veins are fully compressible with transducer pressure and demonstrate normal spontaneous and phasic flow, without evidence of deep venous thrombosis. Impression: No evidence of deep venous thrombosis of the bilateral lower extremity femoral popliteal venous system. Electronically Signed by Ajit Remy MD 06/02/2020 02:59 P
== END ==
LOC: M RAD 13:40
PROVIDERS: ATTEND Advanced Practice Midwife
DX: O26.892 Other specified pregnancy related conditions, second trimester (principal); Z3A.26 26 weeks gestation of pregnancy; M79.669 Pain in unspecified lower leg

== ENCOUNTER → 2020-06-30 | Outpatient (CLI) | payer OTHER ==
[2020-07-27 20:28] LABS: HEMOGLOBIN 11.8 g/dl (12.0-15.5); MEAN CORPUSCULAR HEMOGLOBIN 29.7 pg (27.0-33.0); MEAN CORPUSCULAR HGB CONC 31.9 g/dl (32.0-36.5); MEAN CORPUSCULAR VOLUME 93.2 fl (80.0-96.0); PLATELET COUNT, AUTOMATED 148 10^3/uL (150-450); RED BLOOD COUNT 3.97 10^6/uL (4.00-5.40)
== END ==
LOC: M LAB 09:55
PROVIDERS: ATTEND Advanced Practice Midwife
DX: Z34.03 Encounter for supervision of normal first pregnancy, third trimester (principal); Z3A.00 Weeks of gestation of pregnancy not specified

== ENCOUNTER → 2020-08-18 | Outpatient (REF) | payer OTHER | LOC: M LAB REF 16:41 | PROVIDERS: ATTEND Advanced Practice Midwife | DX: N76.0 Acute vaginitis (principal) ==

== ENCOUNTER 2020-09-02 19:55 | Inpatient (IN) | payer OTHER ==
[~2020-09-02] VITALS: Ht 165.1 cm; Wt 80.7 kg
[~2020-09-02 19:55] MED LIST changes: -PRENTAB9 PO; -TUMS500C PO
[2020-09-02 20:11] VITALS: BP 113/65
[2020-09-02] MEDS ORDERED: TUMS500C PO (20:31)
[2020-09-02] MEDS ORDERED: PRENTAB9 PO (20:31)
[2020-09-02] MEDS ORDERED: LR 600 ML IV SCH (20:45)
[2020-09-02 21:16] VITALS: BP 106/69
[2020-09-02 21:23] LABS: HEMATOCRIT 33.2 % (36.0-47.0); HEMOGLOBIN 10.5 g/dl (12.0-15.5); MEAN CORPUSCULAR HEMOGLOBIN 27.7 pg (27.0-33.0); MEAN CORPUSCULAR HGB CONC 31.6 g/dl (32.0-36.5); MEAN CORPUSCULAR VOLUME 87.6 fl (80.0-96.0); PLATELET COUNT, AUTOMATED 133 10^3/uL (150-450); RED BLOOD COUNT 3.79 10^6/uL (4.00-5.40); WHITE BLOOD COUNT 15.5 10^3/uL (4.0-10.0)
[2020-09-02 21:35] LABS: CREATININE,RANDOM URINE 98.5 MG/DL; TOTAL PROTEIN,RANDOM URINE 19.2 MG/DL (0.0-12.0)
[2020-09-02 21:36] LABS: ALT/SGPT 15 U/L (12-78); BILIRUBIN,TOTAL 0.3 MG/DL (0.2-1.0); CREATININE FOR GFR 0.49 MG/DL (0.55-1.30); GLOMERULAR FILTRATION RATE > 60.0 (>60); LDH LACTATE DEHYDROGENASE 200 U/L (84-246); URIC ACID 5.4 MG/DL (2.6-6.0)
[2020-09-02] MEDS: LR 1,000 ML IV SCH (21:44)
[2020-09-02 22:28] VITALS: BP 117/71
[2020-09-02 23:04] VITALS: BP 91/52
[2020-09-03] VITALS (53 sets, daily range): BP systolic 82–128; BP diastolic 46–86
[2020-09-03] MEDS ORDERED: LR 1,000 ML IV SCH (00:23)
[2020-09-03] MEDS ORDERED: FENTANYL 2MCG/ML ROPIVACAINE 0.2% IN 0.9% NACL 100ML IVBAG As Ordered ONE (00:38)
[2020-09-03] MEDS ORDERED: REFRIGERATOR IV KEYS XX PRN (02:15)
[2020-09-03] MEDS ORDERED: FENTANYL/ROPIVACAINE/NACL BAG 100 ML EPIDURAL SCH (02:15)
[2020-09-03] MEDS ORDERED: diphenhydrAMINE 50MG/ML VIAL (J1200) IV PRN (02:15)
[2020-09-03] MEDS ORDERED: LACTATED RINGER'S 1000 ML IV PRN (02:15)
[2020-09-03] MEDS ORDERED: EPIDURAL COMMENT XX SCH (02:15)
[2020-09-03] MEDS ORDERED: ONDANSETRON 4MG/2ML VIAL IV PRN (02:15)
[2020-09-03] MEDS ORDERED: EPIDURAL/PCA KEYS XX PRN (02:15)
[2020-09-03] MEDS ORDERED: NALOXONE INJ 0.4MG/1ML VIAL (J2310 PER 1MG) IV PRN (02:15)
[2020-09-03] MEDS: ePHEDrine SULFATE 25 MG/5 ML(5MG/ML) SYRINGE IV PRN ×3 (04:50→10:28)
[2020-09-03] MEDS ORDERED: OXYTOCIN 30 UNITS IN 0.9% NaCl 500ML IV BAG (J2590) As Ordered ONE (07:07)
[2020-09-03] MEDS: LR 1,000 ML IV SCH (08:26)
[2020-09-03] MEDS ORDERED: OXYTOCIN DRIP 30 UNITS in IV 1 EA IV SCH ×2 (09:15→12:12)
[2020-09-03] MEDS ORDERED: ACETAMINOPHEN 500 MG TAB PO PRN (12:15)
[2020-09-03] MEDS ORDERED: DOCUSATE SODIUM 100 MG CAP PO PRN (12:15)
[2020-09-03] MEDS ORDERED: RHOGAM 300 MCG (1500 IU) INJ (J2790) IM SCH (12:15)
[2020-09-03] MEDS ORDERED: IBUPROFEN 600MG TAB PO PRN (12:15)
[2020-09-03] MEDS ORDERED: METHYLERGONOVINE MALEATE 0.2 MG TAB PO PRN (12:15)
[2020-09-03] MEDS ORDERED: IBUPROFEN 800 MG TAB PO PRN (12:15)
[2020-09-03] MEDS ORDERED: ACETAMINOPHEN TAB 650MG DOSE (2X325MG) PO PRN (12:15)
[2020-09-03] MEDS ORDERED: DIBUCAINE 1% OINTMENT 30GM TOP PRN (12:15)
[2020-09-03] MEDS ORDERED: MEASLES,MUMPS,RUBELLA VACCINE INJ (MMR-II) (90707) SC SCH (12:15)
[2020-09-03 12:25] LABS: CORD GAS ABE V -2.2; CORD GAS HCO3 V 23.2 MEQ/L; CORD GAS O2 SAT V 76.3 %; CORD GAS PCO2 V 42.2 mmHg; CORD GAS PH V 7.358 UNITS; CORD GAS PO2 V 32.3 mmHg; CORD GAS SBC V 22.2 MEQ/L; CORD GAS TCO2 V 24.5 MEQ/L
[2020-09-03 12:30] LABS: CORD GAS ABE A -4.2; CORD GAS HCO3 A 22.4 MEQ/L; CORD GAS O2 SAT A 46.7 %; CORD GAS PH A 7.296 UNITS; CORD GAS PO2 A 21.2 mmHg; CORD GAS SBC A 19.9 MEQ/L; CORD GAS TCO2 A 23.8 MEQ/L
[2020-09-03] MEDS ORDERED: SLF 3 ML SYR IV PRN (16:00)
[2020-09-03] MEDS: SLF 3 ML SYR IV SCH (21:25)
[2020-09-04 05:12] VITALS: BP 101/56
[2020-09-04] MEDS: SLF 3 ML SYR IV SCH ×2 (05:40→14:08)
[2020-09-04] MEDS ORDERED: PRENATAL VITAMINS CHEWABLE TABLET PO SCH (09:00)
[2020-09-04 18:00] VITALS: BP 114/60
--- NOTE | 2020-09-08 09:53 | DN ---
DATE OF DELIVERY: 09/03/2020. DESCRIPTION OF DELIVERY: Faith is a 30-year-old female, 3, para 2, 0, 0, 2, who was admitted at 38 and 6/7 weeks gestation in active labor. She progressed to fully dilated after artificial rupture of membranes with Pitocin augmentation. She delivered a live female infant with a true knot in left occiput anterior position over an intact perineum. Apgars 9 and 9, weight 8 pounds 4 ounces. Placenta delivered spontaneously intact, three vessel cord. Perineum, vagina, cervix inspected, and no laceration was noted. Estimated blood loss was 300 cc. Both mother and baby in stable condition. MTDD
== END 2020-09-04 20:32 | disposition home or self-care (01) | DRG 560 ==
LOC: M LDO 19:55 → M LDI 09-03 00:22 → M OBS 09-03 13:34
PROVIDERS: ADMIT Obstetrics & Gynecology; ATTEND Obstetrics & Gynecology
PROC: 10E0XZZ Delivery of Products of Conception, External Approach (ICD-10-PCS; principal; 2020-09-03)
PROC: 10907ZC Drainage of Amniotic Fluid, Therapeutic from Products of Conception, Via Natural or Artificial Opening (ICD-10-PCS; 2020-09-03)
DX: O69.2XX0 Labor and delivery complicated by other cord entanglement, with compression, not applicable or unspecified (principal); Z37.0 Single live birth; Z3A.38 38 weeks gestation of pregnancy

== ENCOUNTER → 2020-09-08 | Outpatient (CLI) | payer OTHER ==
[~2020-09-08] MED LIST changes: +PRENTAB9 PO; +TUMS500C PO
[2020-09-08 15:33] LABS: BASO % 0.2 % (0.0-1.0); EOS # 0.2 10^3/uL (0.0-0.5); HEMOGLOBIN 13.1 g/dl (12.0-15.5); LYMPH # 2.7 10^3/uL (1.5-5.0); LYMPH % 14.6 % (24.0-44.0); MEAN CORPUSCULAR HEMOGLOBIN 27.5 pg (27.0-33.0); MEAN CORPUSCULAR HGB CONC 31.2 g/dl (32.0-36.5); MEAN CORPUSCULAR VOLUME 88.2 fl (80.0-96.0); MONO % 5.7 % (0.0-5.0); NEUTROPHILS # 14.1 10^3/uL (1.5-8.5); NEUTROPHILS % 77.5 % (36.0-66.0); PLATELET COUNT, AUTOMATED 168 10^3/uL (150-450); RED BLOOD COUNT 4.76 10^6/uL (4.00-5.40); WHITE BLOOD COUNT 18.1 10^3/uL (4.0-10.0)
[2020-09-08 16:06] LABS: ALBUMIN 2.8 GM/DL (3.2-5.2); ALT/SGPT 23 U/L (12-78); BILIRUBIN,TOTAL 0.2 MG/DL (0.2-1.0); BLOOD UREA NITROGEN 6 MG/DL (7-18); CALCIUM LEVEL 8.8 MG/DL (8.5-10.1); CARBON DIOXIDE LEVEL 27 MEQ/L (21-32); CHLORIDE LEVEL 106 MEQ/L (98-107); CREATININE FOR GFR 0.62 MG/DL (0.55-1.30); GLOMERULAR FILTRATION RATE > 60.0 (>60); GLUCOSE, FASTING 91 MG/DL (70-100); POTASSIUM SERUM 3.7 MEQ/L (3.5-5.1); SODIUM LEVEL 139 MEQ/L (136-145)
== END ==
LOC: M LAB 15:09
PROVIDERS: ATTEND Nurse Practitioner Family
DX: O91.13 Abscess of breast associated with lactation (principal)

== ENCOUNTER 2021-04-25 20:14 | Emergency (ER) | payer OTHER ==
[~2021-04-25] VITALS: Ht 165.1 cm; Wt 71.4 kg
[2021-04-25] MEDS ORDERED: WELLTAB38 PO (20:22)
[2021-04-25] MEDS ORDERED: KETOROLAC 60MG 2ML VIAL IM ONE (23:05)
[2021-04-25] MEDS ORDERED: diazePAM 10 MG TAB PO ONE (23:05)
[2021-04-25] MEDS ORDERED: LIDOCAINE 5% (LIDODERM) PATCH TD ONE (23:05)
[2021-04-26] MEDS ORDERED: NAPR-837 PO (00:03)
[2021-04-26] MEDS ORDERED: METH-1165 PO (00:03)
[2021-04-26] MEDS ORDERED: ASPE4PAD TOP (00:03)
[2021-04-26 00:08] VITALS: BP 127/73
[2021-04-26] MEDS ORDERED: **NOTE PATIENT COMMENT** MISC XX SCH (21:00)
== END 2021-04-26 00:15 | disposition home or self-care (01) ==
LOC: M ED 20:14
DX: M62.838 Other muscle spasm (principal); M25.511 Pain in right shoulder; F17.200 Nicotine dependence, unspecified, uncomplicated; Z88.6 Allergy status to analgesic agent
CPT/HCPCS: 96372; 99283; J1885

== ENCOUNTER → 2021-05-03 | Outpatient (REF) | payer OTHER ==
[~2021-05-03] MED LIST changes: +ASPE4PAD TOP; +METH-1165 PO; +NAPR-837 PO; +WELLTAB38 PO
[2021-05-03 17:53] LABS: BASO % 0.1 % (0.0-1.0); EOS # 0.1 10^3/uL (0.0-0.5); EOS % 1.2 % (0.0-3.0); HEMATOCRIT 47.8 % (36.0-47.0); HEMOGLOBIN 15.3 g/dl (12.0-15.5); LYMPH # 2.4 10^3/uL (1.5-5.0); LYMPH % 35.4 % (24.0-44.0); MEAN CORPUSCULAR HEMOGLOBIN 29.9 pg (27.0-33.0); MEAN CORPUSCULAR VOLUME 93.4 fl (80.0-96.0); MONO # 0.5 10^3/uL (0.0-0.8); MONO % 7.1 % (2.0-8.0); NEUTROPHILS # 3.8 10^3/uL (1.5-8.5); NEUTROPHILS % 55.9 % (36.0-66.0); PLATELET COUNT, AUTOMATED 140 10^3/uL (150-450); RED BLOOD COUNT 5.12 10^6/uL (4.00-5.40); WHITE BLOOD COUNT 6.7 10^3/uL (4.0-10.0)
[2021-05-03 19:30] LABS: ALBUMIN 4.1 GM/DL (3.2-5.2); ALT/SGPT 32 U/L (12-78); BILIRUBIN,TOTAL 0.5 MG/DL (0.2-1.0); BLOOD UREA NITROGEN 13 MG/DL (7-18); CALCIUM LEVEL 9.2 MG/DL (8.5-10.1); CARBON DIOXIDE LEVEL 24 MEQ/L (21-32); CHLORIDE LEVEL 106 MEQ/L (98-107); CREATININE FOR GFR 0.57 MG/DL (0.55-1.30); GLOMERULAR FILTRATION RATE > 60.0 (>60); GLUCOSE, FASTING 86 MG/DL (70-100); POTASSIUM SERUM 3.9 MEQ/L (3.5-5.1); SODIUM LEVEL 139 MEQ/L (136-145); TOTAL PROTEIN 7.7 GM/DL (6.4-8.2)
[2021-05-03 20:02] LABS: HEPATITIS C VIRUS ABY INDEX < 0.0 INDEX (<0.8); HIV 1&2 SCREEN CENTAUR NEGATIVE (NEGATIVE)
== END ==
LOC: M LAB REF 16:47
PROVIDERS: ATTEND Physician Assistant
DX: G47.00 Insomnia, unspecified (principal); Z11.4 Encounter for screening for human immunodeficiency virus [HIV]; Z11.59 Encounter for screening for other viral diseases

== ENCOUNTER → 2021-05-25 | Outpatient (CLI) | payer OTHER ==
--- NOTE | 2021-05-25 13:01 | REP ---
INDICATION: SCOLIOSIS, UNSPECIFIED. COMPARISON: None. TECHNIQUE: AP radiograph of the thoracolumbar spine with the patient standing. FINDINGS: There is a 15 degree dextroconvex thoracolumbar curve measured from the superior endplate of T11 to the superior endplate of L3 using Tobin method. Pedicles are intact bilaterally. The disc spaces are symmetric and relatively well maintained. IMPRESSION: As above <Electronically signed by Sandip Álvarez > 05/25/21 [id number]
== END ==
LOC: M RAD 12:17
PROVIDERS: ATTEND Physician Assistant
DX: M41.9 Scoliosis, unspecified (principal)

== ENCOUNTER → 2021-07-22 | Outpatient (CLI) | payer OTHER ==
--- NOTE | 2021-07-22 12:25 | REP ---
INDICATION: NIPPLE DISCHARGE. Nipple discharge from the left breast x2 weeks. Focal tenderness 11 to 12 o'clock position left breast. COMPARISON: None. TECHNIQUE: Targeted ultrasound, subareolar and 11 to 12 o'clock position left breast. FINDINGS: Heterogeneous fibroglandular background echotexture is seen. No ductal dilation is seen. No cyst or mass is observed. No acoustic shadowing is seen. IMPRESSION: BI-RADS category 1 negative sonographic findings in the left breast. Clinical follow-up is advised. <Electronically signed by Allen Alanis > 07/22/21 [id number]
== END ==
LOC: M RAD 11:25
PROVIDERS: ATTEND Physician Assistant
DX: N63.20 Unspecified lump in the left breast, unspecified quadrant (principal)

== ENCOUNTER → 2021-10-05 | Outpatient (REF) | payer OTHER, MEDICAID ==
[2021-10-05 18:08] LABS: HEMATOCRIT 39.4 % (36.0-47.0); HEMOGLOBIN 12.8 g/dl (12.0-15.5); MEAN CORPUSCULAR HEMOGLOBIN 30.3 pg (27.0-33.0); MEAN CORPUSCULAR HGB CONC 32.5 g/dl (32.0-36.5); MEAN CORPUSCULAR VOLUME 93.4 fl (80.0-96.0); PLATELET COUNT, AUTOMATED 138 10^3/uL (150-450); RED BLOOD COUNT 4.22 10^6/uL (4.00-5.40); WHITE BLOOD COUNT 9.9 10^3/uL (4.0-10.0)
[2021-10-05 18:44] LABS: HCG, SERUM QUANTITATIVE 92678 MIU/ML
[2021-10-05 18:49] LABS: HEPATITIS B SURFACE ANTIGEN NEGATIVE (NEGATIVE)
[2021-10-05 19:16] LABS: HEPATITIS C VIRUS ABY INDEX 0.1 INDEX (<0.8)
[2021-10-05 19:17] LABS: HIV 1&2 SCREEN CENTAUR NEGATIVE (NEGATIVE)
== END ==
LOC: M LAB REF 16:22
PROVIDERS: ATTEND Advanced Practice Midwife
DX: O36.80X0 Pregnancy with inconclusive fetal viability, not applicable or unspecified (principal); Z32.01 Encounter for pregnancy test, result positive; Z3A.00 Weeks of gestation of pregnancy not specified

== ENCOUNTER → 2021-11-02 | Outpatient (REF) | payer OTHER, MEDICAID ==
[2021-11-02 17:12] LABS: HEMATOCRIT 38.1 % (36.0-47.0); HEMOGLOBIN 12.7 g/dl (12.0-15.5); MEAN CORPUSCULAR HEMOGLOBIN 30.3 pg (27.0-33.0); MEAN CORPUSCULAR HGB CONC 33.3 g/dl (32.0-36.5); MEAN CORPUSCULAR VOLUME 90.9 fl (80.0-96.0); PLATELET COUNT, AUTOMATED 157 10^3/uL (150-450); RED BLOOD COUNT 4.19 10^6/uL (4.00-5.40); WHITE BLOOD COUNT 10.2 10^3/uL (4.0-10.0)
== END ==
LOC: M LAB REF 16:27
PROVIDERS: ATTEND Advanced Practice Midwife
DX: Z36.89 Encounter for other specified antenatal screening (principal)

== ENCOUNTER → 2022-02-23 | Outpatient (CLI) | payer OTHER, MEDICAID ==
[2022-02-23 11:03] LABS: HEMATOCRIT 37.3 % (36.0-47.0); HEMOGLOBIN 12.5 g/dl (12.0-15.5); MEAN CORPUSCULAR HEMOGLOBIN 30.2 pg (27.0-33.0); MEAN CORPUSCULAR HGB CONC 33.5 g/dl (32.0-36.5); MEAN CORPUSCULAR VOLUME 90.1 fl (80.0-96.0); PLATELET COUNT, AUTOMATED 123 10^3/uL (150-450); RED BLOOD COUNT 4.14 10^6/uL (4.00-5.40); WHITE BLOOD COUNT 11.6 10^3/uL (4.0-10.0)
== END ==
LOC: M LAB 09:19
PROVIDERS: ATTEND Obstetrics & Gynecology
DX: Z34.82 Encounter for supervision of other normal pregnancy, second trimester (principal)

== ENCOUNTER → 2022-04-13 | Outpatient (REF) | payer OTHER, MEDICAID | LOC: M LAB REF 17:04 | PROVIDERS: ATTEND Obstetrics & Gynecology | DX: Z36.85 Encounter for antenatal screening for Streptococcus B (principal) ==

== ENCOUNTER 2022-04-21 23:15 | Outpatient (CLI) | payer OTHER, MEDICAID ==
[~2022-04-21] VITALS: Ht 165.1 cm; Wt 85.0 kg
[2022-04-21] MEDS ORDERED: ACET-897 PO (23:36)
[2022-04-21 23:38] VITALS: BP 115/58
[2022-04-22 00:16] VITALS: BP 99/53
[2022-04-22] MEDS: METOCLOPRAMIDE 10MG TAB PO ONE (00:55)
[2022-04-22] MEDS: diphenhydrAMINE 25MG CAP PO ONE (00:55)
== END 2022-04-22 01:24 | disposition home or self-care (01) ==
LOC: M LDO 23:15
PROVIDERS: ATTEND Obstetrics & Gynecology
DX: O60.03 Preterm labor without delivery, third trimester (principal); O99.353 Diseases of the nervous system complicating pregnancy, third trimester; G43.909 Migraine, unspecified, not intractable, without status migrainosus; Z3A.36 36 weeks gestation of pregnancy

== ENCOUNTER 2022-05-09 20:06 | Inpatient (IN) | payer MEDICAID, OTHER ==
[2022-05-09] VITALS (12 sets, daily range): BP systolic 102–110; BP diastolic 56–69
[~2022-05-09] VITALS: Ht 165.1 cm; Wt 86.8 kg
[~2022-05-09 20:06] MED LIST changes: +ACET-897 PO
[2022-05-09] MEDS ORDERED: HOME MED LIST COMPLETE! XX SCH (20:25)
[2022-05-09] MEDS ORDERED: LACTATED RINGER'S 1000 ML IV STA (21:02)
[2022-05-09] MEDS ORDERED: LR 1,000 ML IV SCH (21:05)
[2022-05-09] MEDS ORDERED: OXYTOCIN DRIP 30 UNITS in IV 1 EA IV SCH (21:05)
[2022-05-09] MEDS ORDERED: LIDOCAINE 1% MDV 20ML VIAL INFIL PRN (21:05)
[2022-05-09] MEDS ORDERED: TRANEXAMIC ACID INJection 1,000 MG in NS 100 ML IV PRN (21:05)
[2022-05-09] MEDS ORDERED: CARBOPROST TROMETHAMINE 250 MCG/ML AMP IM PRN (21:05)
[2022-05-09] MEDS ORDERED: METHYLERGONOVINE MALEATE 0.2 MG/ML VIAL (J2210) IM PRN (21:05)
[2022-05-09] MEDS ORDERED: OXYTOCIN DRIP 30 UNITS in IV 1 EA IV PRN (21:05)
[2022-05-09 21:28] LABS: HEMATOCRIT 34.3 % (36.0-47.0); HEMOGLOBIN 10.9 g/dl (12.0-15.5); MEAN CORPUSCULAR HEMOGLOBIN 27.3 pg (27.0-33.0); MEAN CORPUSCULAR HGB CONC 31.8 g/dl (32.0-36.5); PLATELET COUNT, AUTOMATED 111 10^3/uL (150-450); RED BLOOD COUNT 3.99 10^6/uL (4.00-5.40); WHITE BLOOD COUNT 15.8 10^3/uL (4.0-10.0)
[2022-05-09] MEDS ORDERED: FENTANYL 2MCG/ML ROPIVACAINE 0.2% IN 0.9% NACL 100ML IVBAG As Ordered ONE (23:10)
[2022-05-09] MEDS ORDERED: EPIDURAL COMMENT XX SCH (23:20)
[2022-05-09] MEDS ORDERED: NALOXONE INJ 0.4MG/1ML VIAL (J2310 PER 1MG) IV PRN (23:20)
[2022-05-09] MEDS ORDERED: diphenhydrAMINE 50MG/ML VIAL (J1200) IV PRN (23:20)
[2022-05-09] MEDS ORDERED: ePHEDrine SULFATE 25 MG/5 ML(5MG/ML) SYRINGE IV PRN (23:20)
[2022-05-09] MEDS ORDERED: REFRIGERATOR IV KEYS XX PRN (23:20)
[2022-05-09] MEDS ORDERED: FENTANYL/ROPIVACAINE/NACL BAG 100 ML EPIDURAL SCH (23:20)
[2022-05-09] MEDS ORDERED: ONDANSETRON 4MG/2ML VIAL IV PRN (23:20)
[2022-05-09] MEDS ORDERED: EPIDURAL/PCA KEYS XX PRN (23:20)
[2022-05-09] MEDS ORDERED: LACTATED RINGER'S 1000 ML IV PRN (23:20)
[2022-05-10] VITALS (19 sets, daily range): BP systolic 83–127; BP diastolic 46–84
[2022-05-10] MEDS ORDERED: CALCIUM CARBONATE 500 MG CHEW U/D PO PRN (00:25)
[2022-05-10] MEDS ORDERED: ANUSOL HC CREAM 30GM TOP PRN (05:10)
[2022-05-10] MEDS ORDERED: METHYLERGONOVINE MALEATE 0.2 MG TAB PO PRN (05:10)
[2022-05-10] MEDS ORDERED: DOCUSATE SODIUM 100MG CAPSULE PO PRN (05:10)
[2022-05-10] MEDS ORDERED: IBUPROFEN 600MG TAB PO PRN (05:10)
[2022-05-10] MEDS ORDERED: RHOGAM 300 MCG (1500 IU) INJ (J2790) IM SCH (05:10)
[2022-05-10] MEDS ORDERED: DIBUCAINE 1% OINTMENT 30GM TOP PRN (05:10)
[2022-05-10] MEDS ORDERED: MOM 30ML SUSPENSION UDC PO PRN (05:10)
[2022-05-10] MEDS ORDERED: ACETAMINOPHEN TAB 650MG DOSE (2X325MG) PO PRN (05:10)
[2022-05-10] MEDS ORDERED: BUPR150T12 PO (06:37)
[2022-05-10] MEDS ORDERED: AMPICILLIN SOD/SULBACTAM SOD 3 GM in D5W MINI-BAG PLUS 100 ML IV ONE (07:00)
[2022-05-10] MEDS: PRENATAL VITAMINS CHEWABLE TABLET PO SCH (09:33)
[2022-05-10] MEDS: buPROPion **XL** TABLET 150MG (WELLBUTRIN XL) PO SCH (09:34)
[2022-05-10] MEDS: IBUPROFEN 800 MG TAB PO PRN (09:34)
[2022-05-10] MEDS: ACETAMINOPHEN 500 MG TAB PO PRN (14:13)
[2022-05-11] MEDS: ACETAMINOPHEN 500 MG TAB PO PRN (00:39)
[2022-05-11] MEDS: IBUPROFEN 800 MG TAB PO PRN ×2 (05:23→13:29)
[2022-05-11 06:00] VITALS: BP 125/79
[2022-05-11] MEDS: buPROPion **XL** TABLET 150MG (WELLBUTRIN XL) PO SCH (08:51)
[2022-05-11] MEDS: PRENATAL VITAMINS CHEWABLE TABLET PO SCH (08:51)
[2022-05-12] MEDS ORDERED: MEASLES,MUMPS,RUBELLA VACCINE INJ (MMR-II) (90707) SC.IMMUN ONE (09:00)
== END 2022-05-11 17:30 | disposition home or self-care (01) | DRG 560 ==
LOC: M LDO 20:06 → M LDI 20:53 → M OBS 05-10 07:49
PROVIDERS: ADMIT Advanced Practice Midwife; ATTEND Advanced Practice Midwife
PROC: 10E0XZZ Delivery of Products of Conception, External Approach (ICD-10-PCS; principal; 2022-05-10)
PROC: 3E033VJ Introduction of Other Hormone into Peripheral Vein, Percutaneous Approach (ICD-10-PCS; 2022-05-10)
PROC: 0HQ9XZZ Repair Perineum Skin, External Approach (ICD-10-PCS; 2022-05-10)
DX: O36.8130 Decreased fetal movements, third trimester, not applicable or unspecified (principal); F17.200 Nicotine dependence, unspecified, uncomplicated; O99.334 Smoking (tobacco) complicating childbirth; Z37.0 Single live birth; Z3A.39 39 weeks gestation of pregnancy; Z88.8 Allergy status to other drugs, medicaments and biological substances; O70.0 First degree perineal laceration during delivery

== ENCOUNTER 2022-08-18 11:58 | Emergency (ER) | payer OTHER ==
[~2022-08-18] VITALS: Ht 165.1 cm; Wt 75.6 kg
[~2022-08-18 11:58] MED LIST changes: +BUPR150T12 PO
[2022-08-18 12:00] VITALS: BP 136/82
[2022-08-18] MEDS ORDERED: ACET1TAB55 PO (12:08)
[2022-08-18] MEDS ORDERED: NORE1TAB94 (12:08)
== END 2022-08-18 15:17 | disposition home or self-care (01) ==
LOC: M ED 11:58
DX: M25.511 Pain in right shoulder (principal); F41.9 Anxiety disorder, unspecified; Y92.9 Unspecified place or not applicable; Y93.72 Activity, wrestling; Z88.5 Allergy status to narcotic agent; Z79.899 Other long term (current) drug therapy

== ENCOUNTER 2022-12-14 13:55 | Emergency (ER) | payer OTHER ==
[~2022-12-14] VITALS: Ht 165.1 cm; Wt 70.5 kg
[~2022-12-14 13:55] MED LIST changes: +ACET1TAB55 PO; +NORE1TAB94
[2022-12-14 13:56] VITALS: BP 132/68
== END 2022-12-14 15:56 | disposition left against medical advice (07) ==
LOC: M ED 13:55
DX: Z53.21 Procedure and treatment not carried out due to patient leaving prior to being seen by health care provider (principal)

== ENCOUNTER → 2023-03-23 | Outpatient (REF) | payer OTHER ==
[2023-03-23 19:27] LABS: HIV 1&2 SCREEN CENTAUR NEGATIVE (NEGATIVE)
[2023-03-23 20:15] LABS: GC DNA AMPLIFICATION NEGATIVE (NEGATIVE)
== END ==
LOC: M LAB REF 17:30
PROVIDERS: ATTEND Physician Assistant
DX: Z11.3 Encounter for screening for infections with a predominantly sexual mode of transmission (principal); Z11.4 Encounter for screening for human immunodeficiency virus [HIV]; Z11.59 Encounter for screening for other viral diseases

== ENCOUNTER → 2024-03-06 | Outpatient (REF) | payer OTHER ==
[2024-03-06 18:06] LABS: HIV 1&2 SCREEN NEGATIVE (NEGATIVE)
[2024-03-06 18:14] LABS: HEPATITIS C VIRUS ABY INDEX < 0.02 INDEX (<0.8)
[2024-03-06 21:04] LABS: Trichomonas vaginalis (AMP) NOT DETECTED (NEGATIVE)
[2024-03-06 21:28] LABS: GC DNA AMPLIFICATION POSITIVE (NEGATIVE)
== END ==
LOC: M LAB REF 16:13
PROVIDERS: ATTEND Physician Assistant
DX: Z11.3 Encounter for screening for infections with a predominantly sexual mode of transmission (principal); Z11.4 Encounter for screening for human immunodeficiency virus [HIV]; Z11.59 Encounter for screening for other viral diseases

== ENCOUNTER 2024-05-02 19:00 | Emergency (ER) | payer OTHER ==
[~2024-05-02] VITALS: Ht 165.1 cm; Wt 64.7 kg
[2024-05-02 19:00] VITALS: BP 122/74; TEMP 97.8; O2SAT 99
== END 2024-05-02 19:22 | disposition left against medical advice (07) ==
LOC: M ED 19:00
DX: Z53.21 Procedure and treatment not carried out due to patient leaving prior to being seen by health care provider (principal)

== ENCOUNTER → 2024-05-15 | Outpatient (REF) | payer OTHER | LOC: M LAB REF 16:06 | PROVIDERS: ATTEND Nurse Practitioner Family | DX: R30.0 Dysuria (principal) ==

== ENCOUNTER → 2024-09-16 | Outpatient (REF) | payer OTHER ==
[2024-09-18 18:23] LABS: HPV APTIMA Detected (Not Detected)
== END ==
LOC: M LAB REF 16:43
PROVIDERS: ATTEND Physician Assistant
DX: Z12.4 Encounter for screening for malignant neoplasm of cervix (principal); Z11.3 Encounter for screening for infections with a predominantly sexual mode of transmission; Z01.419 Encounter for gynecological examination (general) (routine) without abnormal findings

== ENCOUNTER → 2024-10-14 | Outpatient (CLI) | payer OTHER | LOC: M WUC 12:36 | PROVIDERS: ATTEND Physician Assistant | DX: R10.9 Unspecified abdominal pain (principal) ==

== ENCOUNTER → 2024-10-28 | Outpatient (REF) | payer OTHER | LOC: M LABWUC 16:47 → M LAB REF 16:47 | PROVIDERS: ATTEND Physician Assistant | DX: N39.9 Disorder of urinary system, unspecified (principal) ==

== ENCOUNTER → 2024-11-28 | Outpatient (CLI) | payer OTHER | LOC: M WUC 12:28 | PROVIDERS: ATTEND Physician Assistant | DX: Z32.01 Encounter for pregnancy test, result positive (principal) ==

== ENCOUNTER 2024-12-02 14:30 | Emergency (ER) | payer OTHER, SELFPAY ==
[~2024-12-02] VITALS: Ht 165.1 cm; Wt 68.7 kg
[2024-12-02 14:41] VITALS: BP 105/54; TEMP 97.6; O2SAT 98
[2024-12-02 16:31] LABS: BASO # 0.1 10^3/uL (0.0-0.2); BASO % 0.8 % (0.0-1.0); EOS # 0.1 10^3/uL (0.0-0.5); EOS % 0.9 % (0.0-3.0); HEMATOCRIT 43.1 % (36.0-47.0); HEMOGLOBIN 14.2 g/dl (12.0-15.5); LYMPH # 2.9 10^3/uL (1.5-5.0); LYMPH % 37.8 % (24.0-44.0); MEAN CORPUSCULAR HEMOGLOBIN 31.1 pg (27.0-33.0); MEAN CORPUSCULAR HGB CONC 32.9 g/dl (32.0-36.5); MEAN CORPUSCULAR VOLUME 94.3 fl (80.0-96.0); MONO # 0.6 10^3/uL (0.0-0.8); MONO % 7.2 % (2.0-8.0); NEUTROPHILS # 4.1 10^3/uL (1.5-8.5); PLATELET COUNT, AUTOMATED 150 10^3/uL (150-450); RED BLOOD COUNT 4.57 10^6/uL (4.00-5.40); WHITE BLOOD COUNT 7.6 10^3/uL (4.0-10.0)
[2024-12-02 16:44] LABS: APPEARANCE, URINE HAZY (CLEAR); BACTERIA, URINE AUTO NEGATIVE (NEGATIVE); BILIRUBIN, URINE AUTO NEGATIVE (NEGATIVE); BLOOD, URINE BLOOD NEGATIVE (NEGATIVE); COLOR, URINE YELLOW (YELLOW); GLUCOSE, URINE (UA) AUTO NEGATIVE (NEGATIVE); KETONE, URINE AUTO NEGATIVE (NEGATIVE); LEUKOCYTE ESTERASE, URINE AUTO TRACE (NEGATIVE); MUCUS, URINE SMALL (NEGATIVE); NITRITE, URINE AUTO NEGATIVE (NEGATIVE); PROTEIN, URINE AUTO NEGATIVE (NEGATIVE); RBC, URINE AUTO 2 /HPF (0-3); SPECIFIC GRAVITY URINE AUTO 1.019 (1.002-1.035); SQUAMOUS EPITHELIAL CELL UR AU 6 /HPF (0-6); UROBILINOGEN, URINE AUTO 0.2 mg/dL (0.0-2.0); WBC, URINE AUTO 5 /HPF (0-3)
[2024-12-02 17:02] LABS: BLOOD UREA NITROGEN 6 MG/DL (9-23); CALCIUM LEVEL 9.4 MG/DL (8.5-10.1); CARBON DIOXIDE LEVEL 28 MMOL/L (20-31); CHLORIDE LEVEL 107 MMOL/L (98-107); CREATININE FOR GFR 0.54 MG/DL (0.55-1.30); GLOMERULAR FILTRATION RATE > 60.0 (>60); GLUCOSE, FASTING 77 MG/DL (60-100); POTASSIUM SERUM 3.8 MMOL/L (3.5-5.1); SODIUM LEVEL 142 MMOL/L (136-145)
[2024-12-02 17:21] LABS: HCG, SERUM QUANTITATIVE 1295.7 MIU/ML (<4.2)
== END 2024-12-02 18:16 | disposition left against medical advice (07) ==
LOC: M ED 14:30
DX: Z53.21 Procedure and treatment not carried out due to patient leaving prior to being seen by health care provider (principal)

== ENCOUNTER → 2025-01-09 | Outpatient (REF) | payer OTHER, SELFPAY ==
[2025-01-09 17:59] LABS: HEMATOCRIT 42.1 % (36.0-47.0); MEAN CORPUSCULAR HGB CONC 33.3 g/dl (32.0-36.5); MEAN CORPUSCULAR VOLUME 93.1 fl (80.0-96.0); PLATELET COUNT, AUTOMATED 145 10^3/uL (150-450); RED BLOOD COUNT 4.52 10^6/uL (4.00-5.40); WHITE BLOOD COUNT 8.6 10^3/uL (4.0-10.0)
[2025-01-09 19:05] LABS: HIV 1&2 SCREEN NEGATIVE (NEGATIVE)
[2025-01-09 19:13] LABS: HEPATITIS C VIRUS ABY INDEX 0.11 INDEX (<0.8)
[2025-01-09 19:19] LABS: HCG, SERUM QUANTITATIVE 20188.8 MIU/ML (<4.2)
== END ==
LOC: M LAB REF 16:23
PROVIDERS: ATTEND Obstetrics & Gynecology
DX: O36.80X0 Pregnancy with inconclusive fetal viability, not applicable or unspecified (principal); Z32.01 Encounter for pregnancy test, result positive

== ENCOUNTER 2025-01-18 16:57 | Emergency (ER) | payer OTHER ==
[~2025-01-18] VITALS: Ht 165.1 cm; Wt 69.2 kg
[2025-01-18] MEDS ORDERED: prenatal (17:06)
[2025-01-18 18:21] LABS: BASO % 0.3 % (0.0-1.0); EOS # 0.1 10^3/uL (0.0-0.5); EOS % 0.7 % (0.0-3.0); HEMATOCRIT 41.6 % (36.0-47.0); HEMOGLOBIN 13.7 g/dl (12.0-15.5); LYMPH # 2.8 10^3/uL (1.5-5.0); LYMPH % 29.7 % (24.0-44.0); MEAN CORPUSCULAR HEMOGLOBIN 30.4 pg (27.0-33.0); MEAN CORPUSCULAR HGB CONC 32.9 g/dl (32.0-36.5); MEAN CORPUSCULAR VOLUME 92.2 fl (80.0-96.0); MONO # 0.5 10^3/uL (0.0-0.8); MONO % 5.4 % (2.0-8.0); NEUTROPHILS # 6.1 10^3/uL (1.5-8.5); NEUTROPHILS % 63.6 % (36.0-66.0); PLATELET COUNT, AUTOMATED 126 10^3/uL (150-450); RED BLOOD COUNT 4.51 10^6/uL (4.00-5.40); WHITE BLOOD COUNT 9.5 10^3/uL (4.0-10.0)
[2025-01-18 20:32] VITALS: BP 113/56; TEMP 97.5; O2SAT 98
== END 2025-01-18 21:06 | disposition home or self-care (01) ==
LOC: M ED 16:57
DX: O02.1 Missed abortion (principal); Z88.5 Allergy status to narcotic agent; Z88.6 Allergy status to analgesic agent; Z88.8 Allergy status to other drugs, medicaments and biological substances

== ENCOUNTER 2025-01-20 12:39 | Emergency (ER) | payer OTHER ==
[~2025-01-20] VITALS: Ht 165.1 cm; Wt 76.5 kg
[~2025-01-20 12:39] MED LIST changes: +prenatal
[2025-01-20 12:50] VITALS: TEMP 98.6
[2025-01-20] MEDS: NS (Normal Saline) 0.9% 1,000 ML IV ONE ×2 (13:55→17:25)
[2025-01-20 14:03] LABS: BASO % 0.3 % (0.0-1.0); EOS # 0.1 10^3/uL (0.0-0.5); EOS % 1.1 % (0.0-3.0); HEMATOCRIT 36.9 % (36.0-47.0); HEMOGLOBIN 12.3 g/dl (12.0-15.5); LYMPH # 2.1 10^3/uL (1.5-5.0); LYMPH % 20.6 % (24.0-44.0); MEAN CORPUSCULAR HEMOGLOBIN 31.2 pg (27.0-33.0); MEAN CORPUSCULAR HGB CONC 33.3 g/dl (32.0-36.5); MEAN CORPUSCULAR VOLUME 93.7 fl (80.0-96.0); MONO # 0.5 10^3/uL (0.0-0.8); MONO % 5.3 % (2.0-8.0); NEUTROPHILS # 7.2 10^3/uL (1.5-8.5); NEUTROPHILS % 72.1 % (36.0-66.0); PLATELET COUNT, AUTOMATED 121 10^3/uL (150-450); RED BLOOD COUNT 3.94 10^6/uL (4.00-5.40)
[2025-01-20 14:35] LABS: BLOOD UREA NITROGEN 11 MG/DL (9-23); CARBON DIOXIDE LEVEL 25 MMOL/L (20-31); CHLORIDE LEVEL 109 MMOL/L (98-107); CREATININE FOR GFR 0.48 MG/DL (0.55-1.30); GLOMERULAR FILTRATION RATE > 60.0 (>60); GLUCOSE, FASTING 93 MG/DL (60-100); HCG, SERUM QUANTITATIVE 1864.8 MIU/ML (<4.2); POTASSIUM SERUM 3.7 MMOL/L (3.5-5.1); SODIUM LEVEL 140 MMOL/L (136-145)
[2025-01-20] MEDS: IBUPROFEN 800 MG TAB PO ONE (17:24)
[2025-01-20] MEDS: DOXYCYCLINE HYCLATE 100MG TABLET PO ONE (17:25)
[2025-01-20 17:43] LABS: BASO % 0.3 % (0.0-1.0); EOS # 0.1 10^3/uL (0.0-0.5); EOS % 0.6 % (0.0-3.0); LYMPH # 3.5 10^3/uL (1.5-5.0); LYMPH % 27.7 % (24.0-44.0); MEAN CORPUSCULAR HEMOGLOBIN 31.1 pg (27.0-33.0); MEAN CORPUSCULAR HGB CONC 33.3 g/dl (32.0-36.5); MEAN CORPUSCULAR VOLUME 93.2 fl (80.0-96.0); MONO # 0.5 10^3/uL (0.0-0.8); MONO % 4.2 % (2.0-8.0); NEUTROPHILS # 8.5 10^3/uL (1.5-8.5); NEUTROPHILS % 66.9 % (36.0-66.0); PLATELET COUNT, AUTOMATED 152 10^3/uL (150-450); RED BLOOD COUNT 3.54 10^6/uL (4.00-5.40); WHITE BLOOD COUNT 12.7 10^3/uL (4.0-10.0)
[2025-01-20 20:08] VITALS: O2SAT 100
[2025-01-20 20:26] VITALS: BP 110/72
== END 2025-01-20 20:45 | disposition home or self-care (01) ==
LOC: EDBD 12:39 → M ED 12:39
DX: O03.4 Incomplete spontaneous abortion without complication (principal); F17.200 Nicotine dependence, unspecified, uncomplicated; Z88.5 Allergy status to narcotic agent; Z88.6 Allergy status to analgesic agent; Z88.8 Allergy status to other drugs, medicaments and biological substances
CPT/HCPCS: 80048; 84702; 85025; 86850; 86900; 86901; 87210; 88305; 96360; 99285; S0191

== ENCOUNTER → 2025-02-07 | Outpatient (REF) | payer OTHER | LOC: M LAB REF 15:17 | PROVIDERS: ATTEND Obstetrics & Gynecology | DX: O02.1 Missed abortion (principal) ==

== ENCOUNTER → 2025-10-07 | Outpatient (CLI) | payer OTHER ==
[~2025-10-07] MED LIST changes: +NORE-23; -NORE1TAB94
== END ==
LOC: M RAD 10:26
PROVIDERS: ATTEND Nurse Practitioner Family
DX: I83.893 Varicose veins of bilateral lower extremities with other complications (principal)

== ENCOUNTER → 2025-10-27 | Outpatient (CLI) | payer MEDICAID, OTHER ==
[2025-10-27 19:00] LABS: HCG, SERUM QUALITATIVE NEGATIVE (NEGATIVE)
== END ==
LOC: M WUC 15:19
PROVIDERS: ATTEND Nurse Practitioner Family
DX: Z32.00 Encounter for pregnancy test, result unknown (principal)